=== PATIENT | female | born 1985 | race African-American/Black ===

== ENCOUNTER 2016-12-21 15:33 | Emergency (ER) | payer OTHER ==
[2016-12-21 15:48] VITALS: BMI 24.1
--- NOTE | 2016-12-21 16:09 | PDOC ---
History of Present Illness - General Chief Complaint: Injury Stated Complaint: FALL History Source: Patient Exam Limitations: No Limitations - History of Present Illness Initial Comments: 12/21/16 16:14 This 31 year old female with right side pain. rib pain. She stated she fell against the kitchen counter on to her right side after coming down from a step stool. She denies hitting her head. This occurred approx 2 hours ago. She did not take any meds for pain. She called 911 and transported to ER for evaluation PMH: none PSH: none All: NKA Past History - Past Medical History Allergies/Adverse Reactions: Allergies Allergy/AdvReac Type Severity Reaction Status Date / Time No Known Allergies Allergy Verified 12/21/16 15:48 Home Medications: Ambulatory Orders NK [No Known Home Medication] 12/21/16 Other medical history: Denies - Immunization History Immunization Up to Date: Yes - Psycho/Social/Smoking Cessation Hx Suicidal Ideation: No Smoking History: Current every day smoker Have you smoked in the past 12 months: Yes Number of Cigarettes Smoked Daily: 3 Information on smoking cessation initiated: No Hx Alcohol Use: No Drug/Substance Use Hx: No Substance Use Type: Marijuana Review of Systems - Review of Systems Able to Perform ROS?: Yes Comments:: 12/21/16 16:24 General statement: I have pain on the right side of ribs Hematology: neg history of bleeding/blood thinners Skin: Neg for lesions, rash, bruising. HEENT: Neg symptoms Respiratory: Neg SOB or difficulty in breathing Cardiac: Neg chest pain GI: Neg pain, n/v : Neg problems on voiding MS: Neg for joint pain/stiffness, no edema Neuro: Neg for LOC, weakness, Endocrine: Neg for excess thirst/hunger, cold/heat intolerance, excess sweating Allergies: Neg for allergies *Physical Exam - Vital Signs Last Vital Signs Temp Pulse Resp BP Pulse Ox 98.4 F 63 17 124/87 100 12/21/16 15:43 12/21/16 15:43 12/21/16 15:43 12/21/16 15:43 12/21/16 15:43 - Physical Exam Comments: 12/21/16 16:25 General Appearance: This well appearing 31 yr old female V/S: hemodynamically stable, afebrile Skin: WNL of pt's skin color, no signs of pallor, mottling, cyanosis Head:symmetrical Eyes: EOM's intact, PERRLA Ears: denies pain Nose: patent Throat: lips, teeth, gums, tongue, buccal mucos pink and moist Lungs: Chest symmetry equal. Cap refill <3 seconds. Lung sounds clear Cardiac: PMI at R 4MCL space, pos S1 and S2, regular rate. right side rib pain at mid point on midaxillary. No crepitis Abdomen: Soft, round, nontender : Not observed Muscularskeletal: Gait steady, ambulated in to ER, no edema +PMS Neuro: AAOx3, cognitively intact, speech clear and appropriate. Medical Decision Making - Medical Decision Making 12/21/16 16:28 Pt seen and examined. A/P: 31 yr old female with c/o right side rib pain -hcg, ua -xray -pain management -dipso planning 12/21/16 18:06 no rib fx, dispo to home *DC/Admit/Observation/Transfer Diagnosis at time of Disposition: Rib pain on right side - Discharge Dispostion Disposition: HOME Condition at time of disposition: Stable Admit: No - Referrals Referrals: Olga Pringle MD [Primary Care Provider] -
[2016-12-21] MEDS ORDERED: OXYCODONE/APAP 5/325MG COMBO TABLET PO ONE (16:10)
[2016-12-21] MEDS ORDERED: OXYCODONE/APAP 5/325MG COMBO TABLET ONE (16:46)
--- NOTE | 2016-12-21 17:39 | PDOC ---
*Physical Exam - Vital Signs Last Vital Signs Temp Pulse Resp BP Pulse Ox 98.4 F 63 17 124/87 100 12/21/16 15:43 12/21/16 15:43 12/21/16 15:43 12/21/16 15:43 12/21/16 15:43 ED Treatment Course - Medications Given in the ED: ED Medications Discontinued Medications Generic Name Dose Route Start Last Admin Trade Name Freq PRN Reason Stop Dose Admin Oxycodone/Acetaminophen 1 combo 12/21/16 16:10 12/21/16 16:47 Percocet 5/325 - PO 12/21/16 16:11 1 combo ONCE ONE Administration Medical Decision Making - Medical Decision Making 12/21/16 17:35 31 yo F presenting to the ER with a complaint of rib pain s/p fall Pt state she spun around and fell, landing on her ribs Pt seen by Midlevel Provider under my direct supervision Ancillary studies reviewed No fracture, no pneumothorax I agree with plan as outlined by Midlevel Provider *DC/Admit/Observation/Transfer Diagnosis at time of Disposition: Rib pain on right side - Discharge Dispostion Disposition: HOME Condition at time of disposition: Stable - Prescriptions Prescriptions: Ibuprofen [Motrin -] 600 mg PO TID #21 tablet - Referrals Referrals: Olga Pringle MD [Primary Care Provider] - - Patient Instructions - Post Discharge Activity
[2016-12-21 18:46] VITALS: BP 123/74; PULSE 78; TEMP 98.7
== END 2016-12-21 18:46 | disposition home or self-care (01) ==
LOC: JER 15:33
DX: S21.101A Unspecified open wound of right front wall of thorax without penetration into thoracic cavity, initial encounter (principal); W01.198A Fall on same level from slipping, tripping and stumbling with subsequent striking against other object, initial encounter; Y93.89 Activity, other specified; Y92.030 Kitchen in apartment as the place of occurrence of the external cause
CPT/HCPCS: 71111-TC; 84703; 99283-25